=== PATIENT | male | born 1950 | race Caucasian/White ===

== ENCOUNTER 2017-08-01 08:14 | Day surgery (SDC) | payer OTHER ==
[2017-08-01] MEDS ORDERED: VERSED ONE (08:21)
[2017-08-01] MEDS ORDERED: NS 500 ML IV 500 ML IV ONE (08:27)
[2017-08-01] MEDS: TETRACAINE 0.5% OPHTH 1 DOSE AFFEYE ONE ×2 (08:30→11:24)
[2017-08-01] MEDS ORDERED: VIGAMOX 0.5% OPHTH 1 DOSE AFFEYE ONE ×5 (08:35→11:56)
[2017-08-01] MEDS ORDERED: PROLENSA OPHTH 1 DOSE AFFEYE ONE (08:46)
[2017-08-01] MEDS ORDERED: ALPHAGAN-P OPHTH 1 DOSE AFFEYE ONE (08:47)
[2017-08-01] MEDS ORDERED: CYCLOGYL 1% OPHTH 1 DOSE OP ONE ×3 (08:48→08:50)
[2017-08-01] MEDS ORDERED: AK-DILATE 2.5% OPHTH 1 DOSE OP ONE ×3 (08:48→08:50)
[2017-08-01] MEDS ORDERED: MYDRIACIL OPHTH 1 DOSE AFFEYE ONE ×3 (08:48→08:50)
[2017-08-01] MEDS ORDERED: TETRACAINE 0.5% OPHTH 1 DOSE AFFEYE ONE ×3 (09:42→11:32)
[2017-08-01] MEDS ORDERED: VERSED IVP ONE ×2 (11:24)
[2017-08-01] MEDS ORDERED: BETADINE OPHTH SOLN 5% EACHEYE ONE (11:32)
[2017-08-01] MEDS ORDERED: DUOVISC IO ONE (11:43)
[2017-08-01] MEDS ORDERED: BSS OPHTH (PLAIN) 500 ML with VANCOMYCIN HCL 500 MG VIAL 25 MG, ADRENALINE CHL INJ 1 MG IR ONE ×3 (11:43)
[2017-08-01] MEDS ORDERED: XYLOCAINE-MPF 1% IJ ONE (11:43)
[2017-08-01] MEDS ORDERED: ADRENALINE CHL INJ IJ ONE (11:43)
[2017-08-01 14:44] VITALS: BP 137/70
== END 2017-08-01 12:20 | disposition home or self-care (01) ==
LOC: SURG1 08:14
PROVIDERS: ATTEND Ophthalmology
PROC: 08RK3JZ Replacement of Left Lens with Synthetic Substitute, Percutaneous Approach (ICD-10-PCS; principal; 2017-08-01 11:30)
PROC: 08DK3ZZ Extraction of Left Lens, Percutaneous Approach (ICD-10-PCS; principal; 2017-08-01 11:30)
DX: H25.12 Age-related nuclear cataract, left eye (principal); H25.012 Cortical age-related cataract, left eye; H52.222 Regular astigmatism, left eye
CPT/HCPCS: A4217; J0170; J2250; J3370